=== PATIENT | male | born 1945 | race Caucasian/White ===

== ENCOUNTER 2017-10-29 06:24 | Day surgery (SDC) | payer OTHER ==
[2017-10-24 10:07] VITALS: BMI 34.2
[2017-10-29] MEDS ORDERED: LIDOCAINE 1%/EPI 1:100000 (20 ML MULTI DOSE VIAL) ONE (07:11)
[2017-10-29] MEDS ORDERED: TETRACAINE 0.5% OPHTH SOLN 2 ML BOTTLE ONE (07:11)
[2017-10-29] MEDS ORDERED: ERYTHROMYCIN 0.5% OPHTHALMIC OINTMENT 3.5 GM TUBE ONE (07:11)
[2017-10-29] MEDS ORDERED: POVIDONE-IODINE 5% OPHTHALMIC PREP 30 ML SOLUTION ONE ×2 (07:11→08:27)
[2017-10-29] MEDS ORDERED: BUPIVACAINE HCL/PF 0.5% (5MG/ML) 10 ML VIAL ONE (07:11)
[2017-10-29] MEDS ORDERED: PROPOFOL 20 ML ONE ×3 (07:33→08:27)
[2017-10-29] MEDS ORDERED: MIDAZOLAM HCL 2 MG/2 ML SINGLE DOSE VIAL ONE (07:33)
[2017-10-29] MEDS ORDERED: POVIDONE-IODINE 5% OPHTHALMIC PREP 30 ML SOLUTION OU ONE (08:13)
[2017-10-29] MEDS ORDERED: ceFAZolin SODIUM 1 GM VIAL ONE (08:24)
[2017-10-29] MEDS ORDERED: ERYTHROMYCIN 0.5% OPHTHALMIC OINTMENT 3.5 GM TUBE OS ONE ×2 (08:36→09:41)
[2017-10-29] MEDS ORDERED: DESFLURANE GAS 240 ML BOTTLE IH ONE (08:46)
[2017-10-29] MEDS ORDERED: LABETALOL HCL 5 MG/1 ML (100MG/20 ML VIAL) ONE (09:01)
[2017-10-29] MEDS ORDERED: ONDANSETRON 4 MG/2 ML VIAL ONE (09:04)
[2017-10-29] MEDS ORDERED: DEXAMETHASONE SOD PHOSPHATE 4 MG/1 ML VIAL ONE (09:04)
[2017-10-29] MEDS ORDERED: GLYCOPYRROLATE 0.2 MG/1 ML VIAL ONE (09:29)
[2017-10-29] MEDS ORDERED: ACETAMINOPHEN 325 MG TABLET (FP) PO PRN (10:02)
[2017-10-29] MEDS ORDERED: LACTATED RINGERS SOLUTION 1,000 ML IV SCH (10:15)
[2017-10-29 10:25] VITALS: TEMP 98.5
[2017-10-29 11:31] VITALS: BP 133/83; PULSE 89
--- NOTE | 2017-10-29 11:40 | OP ---
DATE OF OPERATION: 10/29/2017 PREOPERATIVE DIAGNOSIS: Extensive defect of the left lower lid involving over half the eyelid, status post basal cell carcinoma excision. POSTOPERATIVE DIAGNOSIS: Extensive defect of the left lower lid involving over half the eyelid, status post basal cell carcinoma excision. PROCEDURES PERFORMED: 1. Debridement and tailoring of defect of the left lower lid. 2. Lateral myocutaneous flap from the lateral amish to the right lower lid. 3. Lateral canthoplasty. SURGEON: Jv Azar M.D. ANESTHESIA: LMA. COMPLICATIONS: None. ESTIMATED BLOOD LOSS: 10 to 15 mL. DESCRIPTION OF PROCEDURE: The patient was brought to the operating room and placed on the operating room table. Vital signs were monitored by Anesthesia. The patient was placed under local anesthesia. However, there was too much movement and airway obstruction, so it was switched to LMA anesthesia. He was prepped and draped in the usual sterile fashion, exposing both eyes, after a time-out was performed and after a 50/50 mixture of 2% lidocaine with 1:100,000 epinephrine and 0.5% Marcaine was placed in the lateral canthus down to periosteum and diffusely across the lower lid and diffusely throughout the left amish and eyebrow. Prior to this, a high-arched semicircular flap was marked at the lateral canthus, extending toward the tail of the brow. After prepping and draping, the following procedure was performed: Tetracaine had been placed in both eyes. The right eye was taped closed with Steri-Strips. A high-arched lateral myocutaneous flap was developed with a 15 blade through skin and muscular tissue, extending toward the tail of the brow in a high arched fashion. A skin-muscle flap was dissected off of the superior ariela of the lateral canthal tendon and all the retained ligaments of the lower lid. The lateral canthal tendon and the inferolateral retractors of the eyelid were released from the orbital rim, allowing rotation of the lateral remnant of the eyelid into the central portion of the eyelid. Submuscular dissection was carried out in order to allow this rotation to occur. Hemostasis was achieved with a Jerauld needle and antibiotic irrigation was used throughout the case. The lateral portion of the eyelid was anastomosed to the medial portion with 3 interrupted 6-0 silk sutures, one through the lash line, one through the posterior mucocutaneous junction and a far-far/near-near suture through the koenig line in a vertical mattress fashion. These were tied, reapproximating the eyelid. The tarsal plate was then reapproximated with two or three interrupted 6-0 Vicryl sutures. The muscle layer was closed with 5-0 chromic and the skin with interrupted and running 6-0 plain. The standing cutaneous deformity was removed at the inferior edge of this closure, and then this was closed with 6-0 plain as well. The margin sutures were lifted inferonasally and secured to the skin with a single 6-0 silk suture to keep them away from the cornea. Attention was turned to the myocutaneous flap. The horizontal width of the eyelid was measured contralaterally and found to be 36 to 37 mm, which was quite long. Once the sutures were tied, the tarsus was anastomosed with 6-0 Vicryl. The muscle layer was closed with 5-0 chromic and the skin with 6-0 plain. The lateral canthus was then approached and the horizontal fissure was 37 mm. Therefore, a 36- to 37-mm fissure was created on the left side. The superior lid was sutured to the advanced myocutaneous flap, burying it in the lateral canthus, recreating the lateral canthus. The muscle layer was closed with 5-0 chromic and the skin with a combination of interrupted 6-0 plain and interrupted and running 5-0 chromic suture, removing the standing cutaneous deformity at the superior edge of the rotational flap for esthetic reasons. Then, 5-0 Prolene was used to elevate the flap and secure it to the deep tissues and then tied over a bolster for pressure on the flap. The lateral canthal angle was meticulously tailored to create a nice almond-shaped angle. The skin was sutured with interrupted 6-0 plain to allow this to occur. Erythromycin ointment was placed in the eye, on the sutures of the lower lid and on the lateral canthus. The patient was taken to the recovery room in stable condition. Valeriano [id number]
== END 2017-10-29 11:30 | disposition home or self-care (01) ==
LOC: FASU 06:24
PROVIDERS: ATTEND Ophthalmology
PROC: 0KX10Z2 Transfer Facial Muscle with Skin and Subcutaneous Tissue, Open Approach (ICD-10-PCS; 2017-10-29)
PROC: 0JB10ZZ Excision of Face Subcutaneous Tissue and Fascia, Open Approach (ICD-10-PCS; principal; 2017-10-29 08:19)
DX: C44.119 Basal cell carcinoma of skin of left eyelid, including canthus (principal); H02.89 Other specified disorders of eyelid
CPT/HCPCS: 94760